=== PATIENT | male | born 1945 | race Caucasian/White ===

== ENCOUNTER → 2021-08-31 12:40 | Outpatient (CLI) | payer MEDICARE, SELFPAY ==
--- NOTE | ~2021-08-31 | XR_ITS ---
EXAMINATION: CT abdomen pelvis wo con, XR abdomen/kub 1V DATE: 08/31/2021 13:07 INDICATION: Calcium kidney stones TECHNIQUE: 1. Computed tomography (CT) of the abdomen and pelvis was performed without intravenous contrast. Aut omated exposure control and iterative reconstruction technique were employed. The dose-length product was 757.52 mGy-cm. 2. AP view of the abdomen and pelvis was obtained on 2 radiographs. COMPARISON: KUB dated 12/22/2017 FINDINGS: CT: Mild discoid atelectasis in the left lower lobe and lingula. Heart size is normal. Small amount of at herosclerotic coronary artery calcific location. Aortic valve calcification. No pericardial or pleura l effusion. Diffuse hepatic steatosis. 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 Pancreas and bilateral adrenal glands are normal. Bilateral nonobstructing nephrolithias is with 5 stones in the left kidney measuring up to 4 mm and 15 stones in the right kidney measuring up to 3 mm . No stones seen along the normal bilateral ureters or in the normal bladder. No hydroneph rosis. Prostatomegaly measuring 5.0 x 3.7 cm. Mild scattered colonic diverticulosis, several with ret ained high attenuation material, potentially barium from prior oral contrast study. Small bowel and a ppendix are normal. No free intraperitoneal gas or fluid. No pathologically enlarged abdominal or pel maisha lymphadenopathy. A few phleboliths in the pelvis. Mild lumbar levocurvature. Severe lumbar and lo wer thoracic spondylosis. KUB: Several of the larger stones in both kidneys are visible on the plain radiographs. Couple phleboliths in the left and right hemipelvis. No ureteral stones. Normal bowel gas pattern. Severe lumbar spondy losis. IMPRESSION: 1. Bilateral nonobstructing nephrolithiasis. No ureteral stones or hydronephrosis. Reviewed, dictated and finalized at location A. IMPRESSION: 1. Bilateral nonobstructing nephrolithiasis. No ureteral stones or hydronephros is.
== END ==
PROVIDERS: PCP Urology; Visit Provider Urology
DX: N20.0 Calculus of kidney (principal)
CPT/HCPCS: 74018; 74176